=== PATIENT | female | born 1955 | race Caucasian/White ===

== ENCOUNTER 2022-01-12 00:45 | Day surgery (SDC) | payer MEDICARE, SELFPAY ==
[2021-12-29 09:53] VITALS: BMI 23.7
--- NOTE | 2022-01-11 16:39 | PM.HPGS ---
History of Present Illness History of Present Illness Consent: Risks, benefits, and alternatives have been discussed and questions answered. Patient agrees to proceed with procedure. Chief complaint: hx colon polyps Narrative: Nury Weiss is a 66 year old female Referred for colon cancer screening. She has a history of polyps. 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 Mental handicap Social History Social History Smoking status: Former smoker Alcohol intake: never Substance use: never Substance use type: does not use Living arrangements: with family Spiritual care concerns: No Meds Home Medications and Allergies Home Medications Medication Instructions Recorded Confirmed Type atorvastatin 20 mg tablet 20 mg PO HS 11/23/21 01/12/22 History furosemide 20 mg tablet 20 mg PO DAILY 11/23/21 01/12/22 History levothyroxine 25 mcg tablet 25 mcg PO DAILY 11/23/21 01/12/22 History pantoprazole 20 mg tablet,delayed 20 mg PO DAILY 11/23/21 01/12/22 History release glyburide 1.25 mg tablet 1.25 mg PO DAILY 12/29/21 01/12/22 History potassium chloride 20 mEq/15 mL 20 meq PO DAILY 12/29/21 01/12/22 History oral liquid Allergies Allergy/AdvReac Type Severity Reaction Status Date / Time iohexol Allergy Unknown Verified 01/12/22 10:06 [From contrast - CT, X-RAY] shellfish derived Allergy Unknown Verified 01/12/22 10:06 Exam Resp: Auscultation: clear to auscultation bilaterally Cardio: Rate: regular rate Rhythm: regular rhythm GI: GI Palp: Yes Soft to palpation and No Tenderness to palpation present (GI) Assessment and Plan Assessment and plan (1) Colon cancer screening: Code(s): Z12.11 - Encounter for screening for malignant neoplasm of colon Status: Acute Assessment and Plan: Colonoscopy with possible biopsy or polypectomy or cautery or injection of substances.
[2022-01-12 10:07] VITALS: BP 163/84; PULSE 99; RESP 16; TEMP 36.4; O2SAT 99; BMI 24.5
[2022-01-12] MEDS: LACTATED RINGERS 1,000 ML 150 ML IV CONT (10:21)
[2022-01-12 10:23] LABS: Glucose Point of Care 119 mg/dl (65-105)
--- NOTE | 2022-01-12 10:24 | P.PNAN_ITS ---
Anes - Initial Pre Proc Eval Procedure: Operation Date: 01/12/22 11:00 Proposed Procedures p Screening Colonoscopy - Markell Hickey MD Date/Time: 01/12/22 10:24 Surgeon: Markell Hickey MD Pre Op Diagnosis: hx colon polyps Patient Data Age: 66 Gender: F Height: 1.55 m Weight: 58.8 kg Last Vital Signs Temp 36.4 C L 01/12/22 10:07 Pulse 99 01/12/22 10:07 Resp 16 01/12/22 10:07 BP 163/84 H 01/12/22 10:07 Pulse Ox 99 01/12/22 10:07 O2 Del Method Room Air 01/12/22 10:07 Allergies Allergy/AdvReac Type Severity Reaction Status Date / Time iohexol Allergy Unknown Verified 01/12/22 10:06 [From contrast - CT, X-RAY] shellfish derived Allergy Unknown Verified 01/12/22 10:06 Home Medications Medication Instructions Recorded Confirmed Type atorvastatin 20 mg tablet 20 mg PO HS 11/23/21 01/12/22 History furosemide 20 mg tablet 20 mg PO DAILY 11/23/21 01/12/22 History levothyroxine 25 mcg tablet 25 mcg PO DAILY 11/23/21 01/12/22 History pantoprazole 20 mg tablet,delayed 20 mg PO DAILY 11/23/21 01/12/22 History release glyburide 1.25 mg tablet 1.25 mg PO DAILY 12/29/21 01/12/22 History potassium chloride 20 mEq/15 mL 20 meq PO DAILY 12/29/21 01/12/22 History oral liquid Laboratory Tests 01/12/22 10:19 POC Capillary Glucose 119 mg/dl H mg/dl (65-105) Patient hx anesthesia problems: none Family hx anesthesia problems: none Results Review: All pre-operative results and documents have been reviewed as part of the pre- operative evaluation. 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 Mental handicap Social History Social History Smoking status: Former smoker Alcohol intake: never Substance use: never Substance use type: does not use Living arrangements: with family Spiritual care concerns: No Anes - Eval Final PreProcedure Day of Procedure 01/12/22 10:24 Patient weight: normal Heart: regular rate and rhythm Lungs: clear to auscultation Airway: Mallampati scale class II Neurological: unresponsive ASA classification: III Emergent: no Anesthesia type and monitoring: general GIVS and standard monitoring Results Review: All pre-operative results and documents have been reviewed as part of the pre- operative evaluation. Informed Consent: The patient's anesthetic plan and its attendant risks and benefits were discussed with the patient/family/POA. Questions were solicited and answers provided to the satisfaction of the patient/family/POA.
[2022-01-12] MEDS: SIMETHICONE ORAL SUSPENSION 20 MG/0.3 ML 30 ML BOTTLE 0.6 ML IRRIGATION (11:08)
[2022-01-12 11:17] VITALS: BP 125/80; PULSE 85; RESP 22; O2SAT 96
[2022-01-12 11:27] VITALS: BP 121/77; PULSE 84; RESP 17; O2SAT 100
[2022-01-12 11:37] VITALS: BP 146/88; PULSE 87; RESP 20; O2SAT 100
== END 2022-01-12 11:57 | disposition home or self-care (01) ==
PROVIDERS: PCP Internal Medicine; Visit Provider Internal Medicine Gastroenterology
PROC: 0DJD8ZZ Inspection of Lower Intestinal Tract, Via Natural or Artificial Opening Endoscopic (ICD-10-PCS; CPT 45378; principal; 2022-01-12 11:00)
DX: Z12.11 Encounter for screening for malignant neoplasm of colon (principal); K64.8 Other hemorrhoids; K57.30 Diverticulosis of large intestine without perforation or abscess without bleeding; Z86.010 Personal history of colon polyps; E11.9 Type 2 diabetes mellitus without complications; Z79.84 Long term (current) use of oral hypoglycemic drugs; Z87.891 Personal history of nicotine dependence
CPT/HCPCS: G0105; 82948; J2704; J7120